=== PATIENT | male | born 1990 | race Caucasian/White ===

== ENCOUNTER 2021-01-05 16:20 | Emergency (ER) | payer OTHER ==
[~2021-01-05] VITALS: Ht 167.6 cm; Wt 118.2 kg
--- NOTE | 2021-01-05 18:19 | NUR ---
BREAKING PRIMARY RN FOR LUNCH, WILL CONT TO MONITOR PT STATUS
[2021-01-05 19:19] LABS: ALANINE AMINOTRANSFERASE 29 U/L (12-78); ALBUMIN 4.2 G/DL (3.4-5.0); ALBUMIN/GLOBULIN RATIO 1.2 (1.1-1.5); ALKALINE PHOSPHATASE 92 IU/L (46-116); ANION GAP 8 (8-16); ASPARTATE AMINO TRANSFERASE 16 U/L (10-37); BILIRUBIN,TOTAL 0.5 MG/DL (0.1-1.0); BLOOD UREA NITROGEN 8 MG/DL (7-18); BUN/CREATININE RATIO 8.8 (5.4-32.0); CHLORIDE 101 MMOL/L (99-107); CREATININE 0.91 MG/DL (0.60-1.10); GLUCOSE 122 MG/DL (70-104); POTASSIUM 3.9 MMOL/L (3.5-5.1); SODIUM 138 MMOL/L (135-145); TOTAL CARBON DIOXIDE 28.8 MMOL/L (24-32); TOTAL PROTEIN 7.8 G/DL (6.4-8.2); eGFR > 90 ML/MIN
[2021-01-05 19:22] LABS: D-DIMER < 0.19 MG/L FEU (0-0.50)
[2021-01-05 20:31] VITALS: BP 130/84
== END 2021-01-05 20:34 | disposition home or self-care (01) ==
LOC: ER 16:21
DX: U07.1 COVID-19 (principal)
CPT/HCPCS: 36415; 80053; 85379; 85610; 99283; 99285